=== PATIENT | male | born 1965 | race Two or more races ===

== ENCOUNTER 2020-01-22 13:23 | Inpatient (IN) | payer MEDICAID, SELFPAY ==
[2020-01-22] VITALS (7 sets, daily range): BP systolic 101–121; BP diastolic 44–70; PULSE 75–86; RESP 14–20; TEMP 36.3–36.7; O2SAT 99–100; BMI 46.8
--- NOTE | 2020-01-22 13:29 | HP.PCM_ITS ---
Problem List (1) Acute respiratory failure with hypoxia Status: Acute (2) Hypertension Status: Chronic Qualifiers: Hypertension type: essential hypertension Qualified Code(s): I10 - Essential (primary) hypertension (3) Hypotension Status: Acute Qualifiers: Hypotension type: other hypotension type Qualified Code(s): I95.89 - Other hypotension (4) A-fib Status: Chronic Qualifiers: Atrial fibrillation type: longstanding persistent Qualified Code(s): I48.11 - Longstanding persistent atrial fibrillation (5) Hyperlipidemia Status: Chronic Qualifiers: Hyperlipidemia type: unspecified Qualified Code(s): E78.5 - Hyperlipidemia, unspecified (6) DM type 2 (diabetes mellitus, type 2) Status: Chronic Qualifiers: Diabetes mellitus intermediate project manager insulin use: with intermediate project manager use Diabetes mellitus complication status: with other specified complication Qualified Code(s): E11.69 - Type 2 diabetes mellitus with other specified complication; Z79.4 - MCFP (current) use of insulin (7) Anxiety and depression Status: Chronic (8) COPD (chronic obstructive pulmonary disease) Status: Chronic Qualifiers: COPD type: unspecified COPD Qualified Code(s): J44.9 - Chronic obstructive pulmonary disease, unspecified (9) CAD (coronary artery disease) Status: Chronic Qualifiers: Coronary Disease-Associated Artery/Lesion type: unspecified vessel or lesion type [place] vs. transplanted heart: [place] heart Associated angina: without angina Qualified Code(s): I25.10 - Atherosclerotic heart disease of [place] coronary artery without angina pectoris (10) KAITY (obstructive sleep apnea) Status: Chronic History of Present Illness Date of Admission: 01/22/20 Chief Complaint: Shortness of breath - 5 days The patient is a 54 year old M with past medical history of chronic systolic CHF, EF 30%, Hypertension, Type 2 DM, COPD, possible AKITY who comes in with progressive shortness of breath, ongoing for 5 days. Denies any fever or chills. He admits to bilateral lower extremity swelling, progressively getting worse. He was recently discharged one 1 month ago from [facility] for acute CHF exacerbation. He denied any chest pain or dizziness or palpitations. In the ED in [facility], patient's blood pressure was relatively low. He was given a 500 cc IV fluid bolus. His work-up there showed BUN of 15, creatinine 1.20, calcium 8.8, albumin 3.7, total protein 7.3, AST 25, ALT 25 ALP 105, total bilirubin 1.2, anion gap is 15, high-sensitivity troponin was 51(this was improved compared to his previous troponin levels), proBNP was 2140. BC count is 7.4, Hb 15.4, platelet count 215. CT scan of the chest, PE protocol showed diminished contrast above vacation of the subsegmental pulmonary vessels on the right lower lobe, nuclear artifact. No well-defined filling defect seen within the pulmonary tree. Small bilateral pleural effusion. 3 mm right lower lobe nodule which was new compared to previous. Chest x-ray shows enlargement of the cardiac silhouette, no new infiltrate Past Medical History Past Medical History (Chronic Problems): Chronic Problems Hypertension (Chronic) A-fib (Chronic) Hyperlipidemia (Chronic) DM type 2 (diabetes mellitus, type 2) (Chronic) Anxiety and depression (Chronic) COPD (chronic obstructive pulmonary disease) (Chronic) CAD (coronary artery disease) (Chronic) KAITY (obstructive sleep apnea) (Chronic) Home Medications: Ambulatory Orders Medication Instructions Recorded Albuterol Sulfate [Albuterol 2 puff INHALATION Q4H PRN PRN 01/22/20 Sulfate HFA] Apixaban [Eliquis] 5 mg PO BID 01/22/20 Atorvastatin Calcium [Lipitor] 20 mg PO QHS 01/22/20 Insulin Glargine,Hum.rec.anlog 60 unit SUBCUT QHS 01/22/20 [Lantus] Lisinopril [Zestril] 10 mg PO DAILY 01/22/20 Metolazone 2.5 mg PO DAILY PRN PRN 01/22/20 Metoprolol Succinate [Toprol Xl] 50 mg PO DAILY 01/22/20 Ondansetron [Ondansetron Odt] 4 mg PO Q6H PRN PRN 01/22/20 Polyethylene Glycol 3350 [Miralax] 17 gm PO DAILY 01/22/20 Potassium Chloride 10 meq PO DAILY 01/22/20 Spiriva 2 puff INHALATION DAILY 01/22/20 Spironolactone 25 mg PO DAILY 01/22/20 Torsemide [Demadex] 20 mg PO BID 01/22/20 Wellbutrin Sr 150 mg PO BID 01/22/20 metFORMIN HCl [Glucophage] 1,000 mg PO BIDCM 01/22/20 Surgical History: - - s/p cardiac cath in 08/2017 Psychiatric History: Anxiety, Depression Lives: Alone Smoking Status: Former smoker - quit 2 months ago - *Family History Maternal History Items: - - Arthritis Paternal History Items: Diabetes Review of Systems Constitutional: Reports: Fatigue. Denies: Anorexia, Chills, Fever, Malaise, Weakness, Weight Change Eyes: Denies: Blurred vision, Cataracts, Conjunctivae Inflammation, Pain, Redn ess, Vision Change HEENT: Denies: Difficulty Hearing, Difficulty Swallowing, Head Aches, Hearing Changes, Sinus Congestion, Sinus Drainage Cardiovascular: Reports: Edema. Denies: Chest Pain, Claudication, Chest Pressure, Orthopnea, Palpitations Respiratory: Reports: Cough - dry, Shortness of Breath, Shortness of breath at rest, Shortness of breath upon exertion, Wheezing. Denies: Sputum production Gastrointestinal: Denies: Abdominal Pain, Hematemesis, Hematochezia, Nausea, Vomiting Genitourinary: Denies: Dysuria, Frequency, Incontinence, Nocturia Musculoskeletal: Denies: Joint Pain, Joint stiffness, Joint swelling, Joint Tenderness Skin: Denies: Rash, Wounds Neurological: Denies: Numbness, Tingling, Focal weakness Psychiatric: Denies: Anxiety, Depression, Homicidal Ideations, Suicidal Ideations Hematologic/ Lymphatic: Denies: Easy Bruising, Easy Bleeding VTE Information - Inpt Only VTE Present on Admission: No VTE Pharm Prophylaxis ordered?: Yes Patient Problems: Active and Suspected Problems Acute respiratory failure with hypoxia (Acute) Hypotension (Acute) - Physical Exam General: Alert, Oriented x3, Cooperative, - - in mild respiratory distress, no conversational distress, on 3L oxygen, morbidly obese HEENT: Atraumatic, PERRLA, EOMI, Normocephalic Oral: Moist Mucosa Neck: Supple Lungs: Diminished - especially at the lung bases Cardiovascular: Regular rate, Regular Rhythm, Normal S1, Normal S2, No murmurs Abdomen: Bowel Sounds Present, Soft, Non Tender, Non-Distended, No Hepato- splenomegaly, Obese Extremities: Edema - bilateral +2-3 edema Skin: No rashes Musculoskeletal: No Tenderness to Palpation of Joints or Extremities Lymphatic: No Cervical, Supraclavicular, or Inguinal Adenopathy Neurological: Cranial nerves II-XII grossly intact, Neuro grossly intact Psych/Mental Status: Normal Affect, Appropriate Current Medications Sodium Chloride () 250 mls @ 15 mls/hr IV .[id number] PRN PRN Reason: Saline Flush Sodium Chloride () 250 mls @ 15 mls/hr IV .[id number] PRN PRN Reason: Additional IVPB Infusion Sodium Chloride () 10 - 40 ml IV UD PRN PRN Reason: SALINE FLUSH Assessment/Plan All Active Problems Acute respiratory failure with hypoxia (Acute) Hypotension (Acute) 1. Acute hypoxic respiratory failure secondary to #2/possible mild acute COPD exacerbation/small Acute right lower lobe PE On 3L oxygen, not on oxygen at baseline Elevated D-dimer at outside hospital; CTA chest shows small acute PE in right upper lobe COVID-19 test pending; continue on contact/airborne isolation Will continue on oxygen, no for SPO2 more than 94% 2. Acute on chronic systolic CHF, EF 30% Admitting BNPep >2000. Patient has borderline hypotension Will continue on Lasix 40 mg IV twice daily Strict I's and O's, CHF protocol 3. Hypotension, h/o hypertension We will hold all blood pressure medications 4. Acute PE, small, right lower lobe Unclear if patient took his Eliquis continuously Will continue on Eliquis 5. Type 2 DM, on insulin, continue home regimen 6. Possible mild Acute COPD exacerbation, history of undiagnosed COPD We will start patient on prednisone 40 mg p.o. daily, will monitor blood sugars with the start of steroids 7. Chronic atrial fibrillation, rate controlled, continue on Eliquis 8. Possible KAITY/morbid obesity, BMI 46.8, lifestyle modifications 9. DVT PPx- on Eliquis Inpatient E&M: 20264 Init Hosp L3
[2020-01-22] MEDS: Furosemide 40 MG/4 ML Vial IV ×2 (14:14→18:26)
[2020-01-22 16:50] LABS: Bedside Glucose 127 mg/dL (70-110)
[2020-01-22] MEDS: 0.9% Saline Lock 10 ML Syringe IV (18:26)
[2020-01-22] MEDS: Ipratropium 0.5 MG/2.5 ML SOLUTION INHALATION (19:30)
[2020-01-22] MEDS: buPROPion (SR) 150 MG Tablet.SA PO (21:22)
[2020-01-22] MEDS: Atorvastatin Calcium 20 MG Tablet PO (21:22)
[2020-01-22] MEDS: APIXABAN 5 MG TABLET PO (21:22)
[2020-01-22] MEDS: Insulin Lispro 100 UNIT/ML INSULN.PEN SC (21:23)
[2020-01-22 21:36] LABS: Bedside Glucose 151 mg/dL (70-110)
[2020-01-23] VITALS (15 sets, daily range): BP systolic 105–137; BP diastolic 62–79; PULSE 68–91; RESP 16–18; TEMP 36.4–36.9; O2SAT 92–99
[2020-01-23 03:46] LABS: Absolute Lymphocyte Count 1.52 X10^3/uL (0.83-4.51); Absolute Neutrophil Count 4.9 X10^3/uL (2.0-7.7); Basophil# 0.06 X10^3/uL; Basophil% 0.8 % (0-1); Eosinophil# 0.18 X10^3/uL; Eosinophils% 2.3 % (0-5); Hemoglobin 14.7 g/dL (13.0-16.5); Lymphocyte # 1.52 X10^3/ul (4.0); Lymphocyte % 19.6 % (19-41); Mean Corpuscular Hgb 26.5 pg (27.0-32.0); Mean Corpuscular Volume 82.9 fL (80-94); Mean Platelet Vol. 9.8 fl (6.2-12.0); Monocyte# 1.08 X10^3/uL; Monocyte% 13.9 % (0-10); NRBC Flagged by Analyzer 0 % (0-5); Neutrophil # 4.91 X10^3/uL (2.7-7.7); Neutrophil % 63.1 % (47-70); Platelet Count 231 K/mm3 (150-450); RBC Distribution Width CV 14.8 % (11.6-14.6); RBC Distribution Width SD 44.4 fl (35.1-43.9); Red Blood Count 5.55 M/mm3 (4.6-6.2); White Blood Count 7.8 K/mm3 (4.4-11.0)
[2020-01-23 04:02] LABS: ALB/GLOB Ratio 0.7 RATIO (0.9-2.4); AST(SGOT) 20 U/L (15-37); Alanine Aminotransfer ALT/SGPT 33 U/L (16-61); Albumin, Serum 2.7 g/dL (3.2-5.0); Alkaline Phosphatase 103 U/L (45-117); Anion Gap 8 (5-15); BUN 23 mg/dL (7-18); BUN/Creat Ratio 20.5 RATIO (10-20); Calcium,Total 8.3 mg/dL (8.5-10.1); Chloride 100 mmol/L (98-107); Creatinine, Serum 1.12 mg/dL (0.70-1.30); EST Glomerular Filtration Rate 73 mL/min (>60); Est Glom Filt Rate - Afr Amer 88 mL/min (>60); Estimated Creatinine Clearance 77.85 ml/min; Globulin 3.9 g/dL (2.2-4.2); Glucose 129 mg/dL (74-106); Potassium 3.7 mmol/L (3.5-5.1); Protein, Total 6.6 g/dL (6.4-8.2); Sodium Level 135 mmol/L (136-145)
--- NOTE | 2020-01-23 07:11 | PCM.PN.HOSP ---
Patient Problems: Active and Suspected Problems Acute respiratory failure with hypoxia (Acute) Hypotension (Acute) Reason for Visit: Follow-up on Acute CHF/hypoxic respiratory failure Subjective: Patient was seen and examined. He feels improved. COVID-19 test from [facility] is negative. Still has significant leg edema. Denies any chest pain, dizziness or SOB Objective: Physical Exam General: Alert, Oriented x3, Cooperative, morbidly obese, off oxygen HEENT: Atraumatic, PERRLA, EOMI, Normocephalic Oral: Moist Mucosa Neck: Supple Lungs: Diminished - especially at the lung bases Cardiovascular: Regular rate, Regular Rhythm, Normal S1, Normal S2, No murmurs Abdomen: Bowel Sounds Present, Soft, Non Tender, Non-Distended, No Hepato-splenomegaly, Obese Extremities: Edema - bilateral +2-3 edema Skin: No rashes Musculoskeletal: No Tenderness to Palpation of Joints or Extremities Lymphatic: No Cervical, Supraclavicular, or Inguinal Adenopathy Neurological: Cranial nerves II-XII grossly intact, Neuro grossly intact Psych/Mental Status: Normal Affect, Appropriate Vitals/I&O's: Vital Signs Temp Pulse Resp BP Pulse Ox 97.9 F 80 18 110/79 92 01/23/20 05:50 01/23/20 05:50 01/23/20 05:50 01/23/20 05:50 01/23/20 05:50 Oxygen Flow Rate (L/min) 2 Oxygen Delivery Method Room Air Weight: 148.1 kg Body Mass Index (BMI) 46.8 Intake and Output for Last 24 Hours 01/21/20 01/22/20 01/23/20 23:59 23:59 23:59 Intake Total 1010 / 1010 150 / 150 Output Total 525 / 525 Balance 485 / 485 150 / 150 Laboratory Results 01/22/20 16:45: POC Glucose 127 H 01/22/20 21:21: POC Glucose 151 H 01/23/20 03:40: WBC 7.8, RBC 5.55, Hgb 14.7, Hct 46.0, MCV 82.9, MCH 26.5 L, MCHC 32.0, RDW Std Deviation 44.4 H, RDW Coeff of Sue 14.8 H, Plt Count 231, MPV 9.8, Immature Gran % (Auto) 0.300, Neut % (Auto) 63.1, Lymph % (Auto) 19.6, [place] % (Auto) 13.9 H, Eos % (Auto) 2.3, Baso % (Auto) 0.8, Absolute Neuts (auto) 4.9, Absolute Lymphs (auto) 1.52, Nucleated RBC % 0 01/23/20 03:40: Sodium 135 L, Potassium 3.7, Chloride 100, Carbon Dioxide 27.0, Anion Gap 8, BUN 23 H, Creatinine 1.12, Estim Creat Clear Calc 77.85, Est GFR (MDRD) Af Amer 88, Est GFR (MDRD) Non-Af 73, BUN/Creatinine Ratio 20.5 H, Glucose 129 H, Calcium 8.3 L, Total Bilirubin 1.50 H, AST 20, ALT 33, Alkaline Phosphatase 103, Total Protein 6.6, Albumin 2.7 L, Globulin 3.9, Albumin/Globulin Ratio 0.7 L Current Medications Al Hydroxide/Mg Hydroxide (Mylanta Ii) 30 ml PO Q6H PRN PRN PRN Reason: Gastric Burning Albuterol Sulfate (Ventolin Hfa (Sp)) 2 puff INHALATION Q4H PRN PRN PRN Reason: SHORTNESS OF BREATH Apixaban (Eliquis) 5 mg PO BID [facility] Last Admin: 01/22/20 21:22 Dose: 5 mg Documented by: Atorvastatin Calcium (Lipitor) 20 mg PO QHS [facility] Last Admin: 01/22/20 21:22 Dose: 20 mg Documented by: Bupropion HCl (Wellbutrin Sr (150mg Tablets)) 150 mg PO BID [facility] Last Admin: 01/22/20 21:22 Dose: 150 mg Documented by: Dextrose (D50w Syringe) 0 gm IV X1 PRN; Protocol PRN Reason: Hypoglycemia Furosemide (Lasix) 40 mg IV BID@1000,1800 [facility] Last Admin: 01/22/20 18:26 Dose: 40 mg Documented by: Glucagon () 1 mg IM .X1 PRN PRN Reason: Hypoglycemia Sodium Chloride () 250 mls @ 15 mls/hr IV .[id number] PRN PRN Reason: Saline Flush Sodium Chloride () 250 mls @ 15 mls/hr IV .[id number] PRN PRN Reason: Additional IVPB Infusion Insulin Glargine (Lantus (Bkc)) 60 units SC QHS [facility] Last Admin: 01/22/20 21:23 Dose: 60 u Documented by: Insulin Human Lispro (Humalog Kwikpen (Bkc)) 0 unit SC ACHS [facility]; Protocol Last Admin: 01/22/20 21:23 Dose: 1 u Documented by: Ipratropium [place] (Atrovent) 0.5 mg INHALATION Q6HWA.RT [facility] Last Admin: 01/22/20 19:30 Dose: 0.5 mg Documented by: Melatonin (Melatonin) 3 mg PO QHS PRN PRN PRN Reason: INSOMNIA Nitroglycerin (Nitrostat) 0.4 mg SUBLINGUAL Q5M PRN PRN Reason: CARDIAC/CHEST PAIN Ondansetron HCl (Zofran) 4 mg IV Q8H PRN PRN PRN Reason: NAUSEA/VOMITING Polyethylene Glycol (Miralax) 17 gm PO DAILY [facility] Potassium Chloride (K-Dur) 10 meq PO DAILY ANNA MARIE Prednisone () 40 mg PO DAILY@0800 ANNA MARIE Sodium Chloride () 10 - 40 ml IV UD PRN PRN Reason: SALINE FLUSH Last Admin: 01/22/20 18:26 Dose: 20 ml Documented by: STROKE Vital Signs/Narrative: Vital Signs Temp Pulse Resp BP Pulse Ox 01/23/20 05:50 97.9 F 80 18 110/79 92 01/23/20 04:00 73 Medical Necessity - Tobacco Use Smoking Status: Former smoker Assessment/Plan All Active Problems Acute respiratory failure with hypoxia (Acute) Hypotension (Acute) 1. Acute hypoxic respiratory failure secondary to #2/possible mild acute COPD exacerbation/small Acute right lower lobe PE Improved, off oxygen. COVID-19 test negative. Elevated D-dimer at outside hospital; CTA chest shows small acute PE in right upper lobe DC isolation Will continue management as above and monitor to keep SPO2 more than 94% 2. Acute on chronic systolic CHF, EF 30%, improving Admitting BNPep >2000. Patient has borderline hypotension Will still continue on Lasix 40 mg IV twice daily Strict I's and O's, CHF protocol 3. Hypotension, h/o hypertension Will resume metoprolol 12.5mg daily and continue ellen hold rest of blood pressure medications for now. 4. Acute PE, small, right lower lobe Unclear if patient took his Eliquis continuously Will continue on Eliquis 5. Chronic atrial fibrillation, rate controlled, continue on Eliquis, Resumed on low dose of metoprolol to prevent patient going into RVR 6. Type 2 DM, on insulin, continue home regimen 7. Possible mild Acute COPD exacerbation, history of undiagnosed COPD We will start patient on prednisone 40 mg p.o. daily, will monitor blood sugars with the start of steroids 8. Possible KAITY/morbid obesity, BMI 46.8, lifestyle modifications Needs outpatient sleep study 9. DVT PPx- on Eliquis Inpatient E&M: 98970 Subs Hosp L2
[2020-01-23] MEDS: Ipratropium 0.5 MG/2.5 ML SOLUTION INHALATION ×3 (08:27→19:03)
[2020-01-23] MEDS: predniSONE 20 MG Tablet 40 MG PO (08:37)
[2020-01-23 08:46] LABS: Bedside Glucose 113 mg/dL (70-110)
--- NOTE | 2020-01-23 09:30 | CASEMGMT ---
RN CM called patient in room for initial transition planning/care coordination assessment. RN CM introduced self and role at [facility]. Patient is alert and oriented. Patient willing to participate in assessment and is able to answer all questions appropriately. Care providers, pharmacy, and demographics verified. Patient wishes to discharge home, denies need for home health at this time. Patient states he has no further needs or concerns at this time. CM to follow for discharge planning needs that may arise. PCP: Evi Hernandez Specialists: Farheen hand stamper; traci Hernandez pharmacist Preferred Pharmacy: [facility] Insurance: [place] Prescription Benefit: yes Living Will/HPOA: none LNOK: mother Living Arrangements: Patient lives alone in mobile home with 3 steps and railing to enter the home. Patient states he is independent Transportation: self/family DME/HHC: Patient states he has glucometer at home, denies additional DME. No previous HHC. Disposition Plan: Patient to discharge home with family support and follow-up plans in place. Britni CURRY, RN, CM
[2020-01-23] MEDS: Furosemide 40 MG/4 ML Vial IV ×2 (10:32→17:38)
[2020-01-23] MEDS: 0.9% Saline Lock 10 ML Syringe IV ×3 (10:32→22:33)
[2020-01-23] MEDS: buPROPion (SR) 150 MG Tablet.SA PO ×2 (10:32→22:10)
[2020-01-23] MEDS: APIXABAN 5 MG TABLET PO ×2 (10:32→22:10)
[2020-01-23 11:31] LABS: Bedside Glucose 215 mg/dL (70-110)
[2020-01-23] MEDS: Metoprolol(XL)Succ 25 MG Tablet 12.5 MG PO (13:55)
[2020-01-23 17:01] LABS: Bedside Glucose 192 mg/dL (70-110)
[2020-01-23] MEDS: Insulin Lispro 100 UNIT/ML INSULN.PEN SC ×2 (17:37→22:10)
[2020-01-23] MEDS: Atorvastatin Calcium 20 MG Tablet PO (22:10)
[2020-01-23 22:21] LABS: Bedside Glucose 198 mg/dL (70-110)
[2020-01-24] VITALS (7 sets, daily range): BP systolic 91–111; BP diastolic 66–74; PULSE 80–90; RESP 16; TEMP 36.6–36.7; O2SAT 96–98
[2020-01-24 06:34] LABS: Absolute Lymphocyte Count 1.64 X10^3/uL (0.83-4.51); Absolute Neutrophil Count 5.1 X10^3/uL (2.0-7.7); Basophil# 0.06 X10^3/uL; Basophil% 0.7 % (0-1); Eosinophil# 0.14 X10^3/uL; Eosinophils% 1.7 % (0-5); Hemoglobin 14.6 g/dL (13.0-16.5); Lymphocyte # 1.64 X10^3/ul (4.0); Lymphocyte % 20.3 % (19-41); Mean Corp Hgb Conc 31.7 g/dL (32-36); Mean Corpuscular Hgb 26.2 pg (27.0-32.0); Mean Corpuscular Volume 82.4 fL (80-94); Mean Platelet Vol. 9.8 fl (6.2-12.0); Monocyte# 1.07 X10^3/uL; Monocyte% 13.2 % (0-10); NRBC Flagged by Analyzer 0 % (0-5); Neutrophil # 5.14 X10^3/uL (2.7-7.7); Neutrophil % 63.6 % (47-70); Platelet Count 251 K/mm3 (150-450); RBC Distribution Width CV 14.8 % (11.6-14.6); RBC Distribution Width SD 44.8 fl (35.1-43.9); Red Blood Count 5.58 M/mm3 (4.6-6.2); White Blood Count 8.1 K/mm3 (4.4-11.0)
[2020-01-24] MEDS: Ipratropium 0.5 MG/2.5 ML SOLUTION INHALATION (06:57)
[2020-01-24 07:00] LABS: ALB/GLOB Ratio 0.7 RATIO (0.9-2.4); AST(SGOT) 22 U/L (15-37); Alanine Aminotransfer ALT/SGPT 32 U/L (16-61); Albumin, Serum 2.9 g/dL (3.2-5.0); Alkaline Phosphatase 102 U/L (45-117); Anion Gap 7 (5-15); BUN 25 mg/dL (7-18); BUN/Creat Ratio 21.6 RATIO (10-20); Calcium,Total 8.3 mg/dL (8.5-10.1); Chloride 101 mmol/L (98-107); Creatinine, Serum 1.16 mg/dL (0.70-1.30); EST Glomerular Filtration Rate 70 mL/min (>60); Est Glom Filt Rate - Afr Amer 84 mL/min (>60); Estimated Creatinine Clearance 75.17 ml/min; Glucose 99 mg/dL (74-106); Potassium 3.3 mmol/L (3.5-5.1); Protein, Total 6.9 g/dL (6.4-8.2); Sodium Level 138 mmol/L (136-145)
[2020-01-24 07:06] LABS: Bedside Glucose 109 mg/dL (70-110)
[2020-01-24] MEDS: predniSONE 20 MG Tablet 40 MG PO (07:31)
--- NOTE | 2020-01-24 08:00 | PCM.DC ---
- Discharge Diagnoses Current Active Problems: Current Active and Chronic Problems Acute respiratory failure with hypoxia (Acute) Hypertension (Chronic) Hypotension (Acute) A-fib (Chronic) Hyperlipidemia (Chronic) DM type 2 (diabetes mellitus, type 2) (Chronic) Anxiety and depression (Chronic) COPD (chronic obstructive pulmonary disease) (Chronic) CAD (coronary artery disease) (Chronic) KAITY (obstructive sleep apnea) (Chronic) Reason(s) for Visit for Discharge Instructions: Shortness of breath, Acute CHF You will use the following diet at home:: Cardiac, Fluid restricted (specify 2000 mls, 1500 mls) - 1500 mls Your food should be the consistency of: Regular Your liquids should be the consistency of: Regular/Thin Discharge Activity: Return to Normal Activity Additional Instructions: Take note of changes in your medications. Measure your blood pressure daily. You may need to be resumed back on your previous dosages of medications. Continue to weigh yourself everyday. Follow a low salt, low fat diet. Continue to remain active. You need to follow-upwith your associate director finance in week to discuss BP medications. You need to see your PCP in 2 weeks. Allergies/Adverse Reactions: Allergies No Known Allergies Allergy (Verified 01/22/20 14:04) Medications to take at Discharge Albuterol Sulfate [Albuterol Sulfate HFA] 2 puff INHALATION Q4H PRN PRN 01/22/20 Apixaban [Eliquis] 5 mg PO BID 01/22/20 Atorvastatin Calcium [Lipitor] 20 mg PO QHS 01/22/20 Insulin Glargine,Hum.rec.anlog [Lantus] 60 unit SUBCUT QHS 01/22/20 Metolazone 2.5 mg PO DAILY PRN PRN 01/22/20 Ondansetron [Ondansetron Odt] 4 mg PO Q6H PRN PRN 01/22/20 Polyethylene Glycol 3350 [Miralax] 17 gm PO DAILY 01/22/20 Potassium Chloride 10 meq PO DAILY 01/22/20 Spiriva 2 puff INHALATION DAILY 01/22/20 Torsemide [Demadex] 20 mg PO BID 01/22/20 Wellbutrin Sr 150 mg PO BID 01/22/20 metFORMIN HCl [Glucophage] 1,000 mg PO BIDCM 01/22/20 Metoprolol(XL)Succ [Toprol Xl (Beta Suzi)] 12.5 mg PO DAILY #30 tab 01/24/20 Prednisone [Deltasone] 40 mg PO DAILY #2 tab 01/24/20 The following prescriptions were given: Prednisone [Deltasone] 40 mg PO DAILY #2 tab Metoprolol(XL)Succ [Toprol Xl (Beta Suzi)] 12.5 mg PO DAILY #30 tab Test Results: Test results from this visit will be discussed in further detail at your follow-up appointment, if applicable. Proposed Discharge Date: 01/24/20
--- NOTE | 2020-01-24 08:51 | DS.PCM_ITS ---
Discharge Date and Diagnosis Date of Admission: 01/22/20 Date of Discharge: 01/24/20 - Primary Discharge Diagnosis Active and Suspected Problems Acute respiratory failure with hypoxia (Acute) CO VID?19 ruled out Hypotension (Acute) Acute on chronic systolic CHF, EF 30% Acute right lower lobe PE Hypokalemia Acute COPD exacerbation, mild - Secondary Discharge Diagnosis Chronic Problems Hypertension (Chronic) A-fib (Chronic) Hyperlipidemia (Chronic) DM type 2 (diabetes mellitus, type 2) (Chronic) Anxiety and depression (Chronic) COPD (chronic obstructive pulmonary disease) (Chronic) CAD (coronary artery disease) (Chronic) KAITY (obstructive sleep apnea) (Chronic) Hospital Course and Treatment Operations: None Procedures: None Summary of Care Provided: The patient is a 54 year old M with past medical history of chronic systolic CHF with EF of 30%, hypertension, type II DM, atrial fibrillation on Eliquis who presented as a transfer from [facility] with progressive shortness of breath. Patient was tested for COVID?19 and results were negative. He also had elevated d-dimer and the outside hospital and CTA showed small acute PE in the right upper lobe. Patient was continued on his Eliquis. He was started on Lasix for a proBNP more than 2000. Of note is patient had hypotension on admission. He was given a 500 cc fluid bolus by the [facility]. Patient's home metoprolol and lisinopril were held on admission. He was continued on Lasix with good diuresis. He was off oxygen the next day. He was restarted on a low-dose of metoprolol. He was also started on a short course of p.o. steroids for possible mild COPD. Will complete 5 days of prednisone 40 mg p.o. daily. I had a long talk with the patient concerning recurrent admissions for acute CHF. I stressed on a low-salt, moderate exercises and daily weights regimen. I encouraged him to follow-up with his lapel stitcher in 1 week to have his blood pressure medications reassessed as his metoprolol was decreased from 50 mg p.o. daily to 12.5 mg daily. His lisinopril was also held at discharge. He will follow-up with his primary care doctor to have blood work done. Patient voiced understanding of all these instructions. Subjective: On the day of discharge, patient was seen and examined. Denied any new complaints. He is off oxygen. Objective: Physical Exam General: Alert, Oriented x3, Cooperative, morbidly obese, off oxygen HEENT: Atraumatic, PERRLA, EOMI, Normocephalic Oral: Moist Mucosa Neck: Supple Lungs: Diminished - especially at the lung bases Cardiovascular: Regular rate, Regular Rhythm, Normal S1, Normal S2, No murmurs Abdomen: Bowel Sounds Present, Soft, Non Tender, Non-Distended, No Hepato- splenomegaly, Obese Extremities: Edema - bilateral +2-3 edema Skin: No rashes Musculoskeletal: No Tenderness to Palpation of Joints or Extremities Lymphatic: No Cervical, Supraclavicular, or Inguinal Adenopathy Neurological: Cranial nerves II-XII grossly intact, Neuro grossly intact Psych/Mental Status: Normal Affect, Appropriate - Physical Exam Vitals/I&O's: Vital Signs Temp Pulse Resp BP Pulse Ox 98.0 F 80 16 91/66 98 01/24/20 03:30 01/24/20 06:57 01/24/20 06:57 01/24/20 03:30 01/24/20 07:54 Oxygen Flow Rate (L/min) 99 Oxygen Delivery Method Room Air Weight: 145.3 kg Body Mass Index (BMI) 46.8 Intake and Output for Last 24 Hours 01/22/20 01/23/20 01/24/20 23:59 23:59 23:59 Intake Total 1010 / 1010 870 / 870 Output Total 525 / 525 1000 / 1000 225 / 225 Balance 485 / 485 -130 / -130 -225 / -225 Laboratory Results 01/23/20 11:27: POC Glucose 215 H 01/23/20 16:50: POC Glucose 192 H 01/23/20 22:07: POC Glucose 198 H 01/24/20 06:10: WBC 8.1, RBC 5.58, Hgb 14.6, Hct 46.0, MCV 82.4, MCH 26.2 L, MCHC 31.7 L, RDW Std Deviation 44.8 H, RDW Coeff of Sue 14.8 H, Plt Count 251, MPV 9.8, Immature Gran % (Auto) 0.500, Neut % (Auto) 63.6, Lymph % (Auto) 20.3, [place] % (Auto) 13.2 H, Eos % (Auto) 1.7, Baso % (Auto) 0.7, Absolute Neuts (auto) 5.1, Absolute Lymphs (auto) 1.64, Nucleated RBC % 0 01/24/20 06:10: Sodium 138, Potassium 3.3 L, Chloride 101, Carbon Dioxide 30.0, Anion Gap 7, BUN 25 H, Creatinine 1.16, Estim Creat Clear Calc 75.17, Est GFR (MDRD) Af Amer 84, Est GFR (MDRD) Non-Af 70, BUN/Creatinine Ratio 21.6 H, Glucose 99, Calcium 8.3 L, Total Bilirubin 1.60 H, AST 22, ALT 32, Alkaline Phosphatase 102, Total Protein 6.9, Albumin 2.9 L, Globulin 4.0, Albumin/Globulin Ratio 0.7 L 01/24/20 06:41: POC Glucose 109 Current Medications Al Hydroxide/Mg Hydroxide (Mylanta Ii) 30 ml PO Q6H PRN PRN PRN Reason: Gastric Burning Albuterol Sulfate (Ventolin Hfa (Sp)) 2 puff INHALATION Q4H PRN PRN PRN Reason: SHORTNESS OF BREATH Apixaban (Eliquis) 5 mg PO BID [facility] Last Admin: 01/23/20 22:10 Dose: 5 mg Documented by: Atorvastatin Calcium (Lipitor) 20 mg PO QHS [facility] Last Admin: 01/23/20 22:10 Dose: 20 mg Documented by: Bupropion HCl (Wellbutrin Sr (150mg Tablets)) 150 mg PO BID [facility] Last Admin: 01/23/20 22:10 Dose: 150 mg Documented by: Dextrose (D50w Syringe) 0 gm IV X1 PRN; Protocol PRN Reason: Hypoglycemia Furosemide (Lasix) 40 mg IV BID@1000,1800 [facility] Last Admin: 01/23/20 17:38 Dose: 40 mg Documented by: Glucagon () 1 mg IM .X1 PRN PRN Reason: Hypoglycemia Sodium Chloride () 250 mls @ 15 mls/hr IV .[id number] PRN PRN Reason: Saline Flush Sodium Chloride () 250 mls @ 15 mls/hr IV .[id number] PRN PRN Reason: Additional IVPB Infusion Insulin Glargine (Lantus (Bkc)) 60 units SC QHS [facility] Last Admin: 01/23/20 22:45 Dose: 60 u Documented by: Insulin Human Lispro (Humalog Karri (Bkc)) 0 unit SC ACHS [facility]; Protocol Last Admin: 01/24/20 06:42 Dose: Not Given Documented by: Ipratropium [place] (Atrovent) 0.5 mg INHALATION Q6HWA.RT [facility] Last Admin: 01/24/20 06:57 Dose: 0.5 mg Documented by: Melatonin (Melatonin) 3 mg PO QHS PRN PRN PRN Reason: INSOMNIA Metoprolol Succinate (Toprol Xl (Beta Suzi)) 12.5 mg PO DAILY [facility] Last Admin: 01/23/20 13:55 Dose: 12.5 mg Documented by: Nitroglycerin (Nitrostat) 0.4 mg SUBLINGUAL Q5M PRN PRN Reason: CARDIAC/CHEST PAIN Ondansetron HCl (Zofran) 4 mg IV Q8H PRN PRN PRN Reason: NAUSEA/VOMITING Polyethylene Glycol (Miralax) 17 gm PO DAILY [facility] Last Admin: 01/23/20 10:19 Dose: Not Given Documented by: Potassium Chloride (K-Dur) 10 meq PO DAILY [facility] Last Admin: 01/23/20 10:32 Dose: 10 meq Documented by: Prednisone () 40 mg PO DAILY@0800 [facility] Last Admin: 01/24/20 07:31 Dose: 40 mg Documented by: Sodium Chloride () 10 - 40 ml IV UD PRN PRN Reason: SALINE FLUSH Last Admin: 01/23/20 22:33 Dose: 10 ml Documented by: Discharge Diet: Low fat/ Low Cholesterol, 2000 mg Sodium Diet, Carb Control Diet Discharge Activity: Return to Normal Activity Home Medications: Medications to take at Discharge Albuterol Sulfate [Albuterol Sulfate HFA] 2 puff INHALATION Q4H PRN PRN 01/22/20 Apixaban [Eliquis] 5 mg PO BID 01/22/20 Atorvastatin Calcium [Lipitor] 20 mg PO QHS 01/22/20 Insulin Glargine,Hum.rec.anlog [Lantus] 60 unit SUBCUT QHS 01/22/20 Metolazone 2.5 mg PO DAILY PRN PRN 01/22/20 Ondansetron [Ondansetron Odt] 4 mg PO Q6H PRN PRN 01/22/20 Polyethylene Glycol 3350 [Miralax] 17 gm PO DAILY 01/22/20 Potassium Chloride 10 meq PO DAILY 01/22/20 Spiriva 2 puff INHALATION DAILY 01/22/20 Torsemide [Demadex] 20 mg PO BID 01/22/20 Wellbutrin Sr 150 mg PO BID 01/22/20 metFORMIN HCl [Glucophage] 1,000 mg PO BIDCM 01/22/20 Metoprolol(XL)Succ [Toprol Xl (Beta Suzi)] 12.5 mg PO DAILY #30 tab 01/24/20 Prednisone [Deltasone] 40 mg PO DAILY #2 tab 01/24/20 Following Prescrptions Were Given to Patient: Prednisone [Deltasone] 40 mg PO DAILY #2 tab Transmission Status: Received by [email or web address] #[id number] Metoprolol(XL)Succ [Toprol Xl (Beta Suzi)] 12.5 mg PO DAILY #30 tab Transmission Status: Received by [email or web address] #[id number] Disposition: Home Minutes spent on discharge:: 45 Patient Condition:: Stable Medical Necessity - Tobacco Use Smoking Status: Former smoker Tobacco Use: Non-smoker Meaningful Use Info Meaningful Use Diagnoses (Choose all that apply): None applicable Inpatient E&M: 06174 Subs Hosp L2
[2020-01-24] MEDS: APIXABAN 5 MG TABLET PO (09:42)
[2020-01-24] MEDS: Metoprolol(XL)Succ 25 MG Tablet 12.5 MG PO (09:42)
[2020-01-24] MEDS: buPROPion (SR) 150 MG Tablet.SA PO (09:43)
--- NOTE | 2020-01-24 10:22 | PHA.DC.MC ---
Pharmacy Service has performed discharge medication reconciliation and counseling for this patient. 1. PREDNISONE 40MG PO DAILY X 1 DOSE 2. METOPROLOL SUCCINATE 12.5MG PO DAILY The patient's discharge medication list was reviewed for discrepancies and discrepancies were resolved. Home Medications Albuterol Sulfate [Albuterol Sulfate HFA] 2 puff INHALATION Q4H PRN PRN 01/22/20 Apixaban [Eliquis] 5 mg PO BID 01/22/20 Atorvastatin Calcium [Lipitor] 20 mg PO QHS 01/22/20 Insulin Glargine,Hum.rec.anlog [Lantus] 60 unit SUBCUT QHS 01/22/20 Metolazone 2.5 mg PO DAILY PRN PRN 01/22/20 Ondansetron [Ondansetron Odt] 4 mg PO Q6H PRN PRN 01/22/20 Polyethylene Glycol 3350 [Miralax] 17 gm PO DAILY 01/22/20 Potassium Chloride 10 meq PO DAILY 01/22/20 Spiriva 2 puff INHALATION DAILY 01/22/20 Torsemide [Demadex] 20 mg PO BID 01/22/20 Wellbutrin Sr 150 mg PO BID 01/22/20 metFORMIN HCl [Glucophage] 1,000 mg PO BIDCM 01/22/20 Metoprolol(XL)Succ [Toprol Xl (Beta Suzi)] 12.5 mg PO DAILY #30 tab 01/24/20 Prednisone [Deltasone] 40 mg PO DAILY #2 tab 01/24/20 The patient was counseled on the following discharge medications and changes in medications for homegoing were reviewed. The Reason for Use, instructions for use, and potential side effects were reviewed for all new medications. The patient's questions regarding all of their medications were answered. The patient was able to verbally demonstrate an understanding of their discharge medications.
== END 2020-01-24 11:00 | disposition home or self-care (01) | DRG 140 ==
LOC: ICU 01-23 07:16 → PCU 01-23 11:51
PROVIDERS: Admitting Provider Internal Medicine; Visit Provider Internal Medicine
DX: J44.1 Chronic obstructive pulmonary disease with (acute) exacerbation (principal); J96.01 Acute respiratory failure with hypoxia; I26.99 Other pulmonary embolism without acute cor pulmonale; I11.0 Hypertensive heart disease with heart failure; I50.23 Acute on chronic systolic (congestive) heart failure; Z79.4 Long term (current) use of insulin; E11.9 Type 2 diabetes mellitus without complications; Z79.02 Long term (current) use of antithrombotics/antiplatelets; E66.01 Morbid (severe) obesity due to excess calories; Z68.42 Body mass index [BMI] 45.0-49.9, adult; I48.11 Longstanding persistent atrial fibrillation; E78.5 Hyperlipidemia, unspecified; F32.9 Major depressive disorder, single episode, unspecified; F41.9 Anxiety disorder, unspecified; I25.10 Atherosclerotic heart disease of native coronary artery without angina pectoris; G47.33 Obstructive sleep apnea (adult) (pediatric); Z79.51 Long term (current) use of inhaled steroids; Z79.899 Other long term (current) drug therapy; Z87.891 Personal history of nicotine dependence; I95.9 Hypotension, unspecified; E87.6 Hypokalemia
CPT/HCPCS: 36415; 80053; 82962; 85025; 94640; 97802; 99251; 99406; A4216; G0463; J1940